=== PATIENT | female | born 1950 ===

== ENCOUNTER → 2020-07-19 15:44 | Outpatient (CLI) | payer MEDICARE, SELFPAY ==
--- NOTE | ~2020-07-19 | MR_ITS ---
EXAMINATION: MR lumbar spine wo con DATE: 07/19/2020 16:17 INDICATION: Lumbar radiculopathy TECHNIQUE: Magnetic resonance imaging (MRI) of the lumbar spine was performed without intravenous con trast. Sequences included sagittal T2-weighted FSE, sagittal T2-weighted FS FSE, sagittal T1-weighted FSE, and axial T2-weighted FSE. COMPARISON: 08/08/2009 FINDINGS: Alignment is normal. Vertebral body heights are normal. Mild fibrovascular degenerative endplate gibson ges on the right side of the L2-L3 disc space. Marrow signal is otherwise normal. Interval increase i n now moderate to severe disc height loss at L2-L3. Additional progression of now moderate disc heigh t loss at T10-T11 through L1-L2 and mild to moderate disc height loss at L3-L4 L4-L5 and L5-S1. The c onus medullaris terminates at T12-L1. There is normal signal in the caudal spinal cord. Paravertebral soft tissues are unremarkable. The following disc levels are specifically discussed: T12-L1: Disc is bulging. There is bilateral facet joint osteoarthritis. There is no neural foraminal stenosis. There is mild central canal stenosis. L1-L2: Disc is bulging. There is mild bilateral facet joint osteoarthritis. There is no neural forami nal stenosis. There is mild central canal stenosis. L2-L3: Disc is bulging with annular fissure. There is mild bilateral facet joint osteoarthritis. Ther e is mild bilateral neural foraminal stenosis. There is mild central canal stenosis and mild narrowin g of the lateral recesses. L3-L4: Disc is bulging. There is mild bilateral facet joint osteoarthritis. There is mild bilateral n eural foraminal stenosis. There is mild central canal stenosis and mild narrowing of the lateral rece sses. L4-L5: Disc is bulging with superimposed annular fissure. There is mild bilateral facet joint osteoar thritis. There is mild bilateral neural foraminal stenosis. There is mild central canal stenosis and mild narrowing of the lateral recesses, right greater than left. L5-S1: Disc is bulging. There is moderate bilateral facet joint osteoarthritis. There is mild to mode rate bilateral neural foraminal stenosis. There is mild central canal stenosis. IMPRESSION: 1. Interval progression of now moderate lumbar spondylosis. Reviewed, dictated and finalized at location A.
== END ==
PROVIDERS: Visit Provider Anesthesiology
DX: M47.26 Other spondylosis with radiculopathy, lumbar region (principal)
CPT/HCPCS: 72148

== ENCOUNTER → 2020-08-21 13:36 | Outpatient (CLI) | payer MEDICARE, SELFPAY ==
--- NOTE | ~2020-08-21 | MR_ITS ---
EXAMINATION: MR cervical spine wo/w con DATE: 08/21/2020 14:34 INDICATION: Cervical radiculopathy. TECHNIQUE: Magnetic resonance imaging (MRI) of the cervical spine was performed without and with 13 m L MultiHance intravenous contrast. Sequences included sagittal and axial T2-weighted FSE, sagittal ST IR FSE, and sagittal and axial T1-weighted FSE. Postcontrast sequences included sagittal and axial T1 -weighted FS FSE. COMPARISON: Cervical spine MRI 04/18/2014 FINDINGS: Bone alignment is normal. Vertebral body heights are normal. There is mildly decreased disc height at C4-C5 and C5-C6. The spinal cord signal intensity is normal. The following disc levels are specifically discussed: C2-C3: The disc does not extend beyond the endplate margin. There is no uncovertebral joint osteoarth ritis. There is mild right facet joint osteoarthritis. There is no neural foraminal stenosis. There i s no central canal stenosis. C3-C4: The disc does not extend beyond the endplate margin. There is mild left uncovertebral joint os teoarthritis. There is mild left facet joint osteoarthritis. There is no neural foraminal stenosis. T here is no central canal stenosis. C4-C5: There is a left central extrusion. There is mild left uncovertebral joint osteoarthritis. Ther e is mild bilateral facet joint osteoarthritis. There is mild left neural foraminal stenosis. There i s mild central canal stenosis. C5-C6: The disc is bulging. There is severe bilateral uncovertebral joint osteoarthritis. There is mi ld bilateral facet joint osteoarthritis. There is moderate right and mild left neural foraminal steno sis. There is mild central canal stenosis with ventral indentation of the spinal cord. C6-C7: There is a central protrusion. There is no uncovertebral joint osteoarthritis. There is mild b ilateral facet joint osteoarthritis. There is mild left neural foraminal stenosis. There is mild cent ral canal stenosis. C7-T1: The disc does not extend beyond the endplate margin. There is no uncovertebral joint osteoarth ritis. There is no facet joint osteoarthritis. There is no neural foraminal stenosis. There is no maryan tral canal stenosis. IMPRESSION: 1. Moderate cervical spondylosis, stable from 04/18/2014. Reviewed, dictated and finalized at location A.
[2020-08-21 13:58] LABS: Estimated Glomerular Filt Rate > 60
== END ==
PROVIDERS: Visit Provider Anesthesiology
DX: M47.22 Other spondylosis with radiculopathy, cervical region (principal)
CPT/HCPCS: 72156; A9577

== ENCOUNTER → 2020-10-09 10:09 | Outpatient (CLI) | payer MEDICARE, SELFPAY ==
--- NOTE | ~2020-10-09 | MR_ITS ---
EXAMINATION: MR thoracic spine wo con EXAM DATE: 10/09/2020 11:11 INDICATION: Radiculopathy, thoracic region upper/mid back burning x yrs, no trauma, no ca, pt fall of f. TECHNIQUE: Multi-sequential, multiplanar MR images of the thoracic spine were obtained without contra st. Sagittal T1, T2, T2 fat saturation, axial T2 weighted images reviewed. There is no prior study for comparison. FINDINGS: There is mild to moderate mid and lower thoracic disc disease, with mild disc bulges and pr otrusions, not causing any central canal stenosis. There is mild to moderate thoracic facet arthropat hy. Thoracic neural foramen also widely patent. Small to moderate size Schmorl's nodes at mid and low er thoracic levels. The spinal cord signal intensity and intrinsic morphology is normal. There are no suspicious marrow signal abnormalities. Paraspinal soft tissue is unremarkable. IMPRESSION: 1. Mild to moderate thoracic spondylosis. 2. No stenosis. Reviewed, dictated and finalized at location A.
== END ==
PROVIDERS: Visit Provider Anesthesiology
DX: M47.24 Other spondylosis with radiculopathy, thoracic region (principal)
CPT/HCPCS: 72146

== ENCOUNTER → 2021-05-28 11:25 | Outpatient (CLI) | payer MEDICARE, SELFPAY ==
--- NOTE | ~2021-05-28 | XR_ITS ---
EXAMINATION: XR shoulder RT min 2V DATE: 05/28/2021 11:48 INDICATION: Right shoulder pain. TECHNIQUE: 4 views of right shoulder were obtained. COMPARISON: None. FINDINGS: Bone alignment is normal. No fracture. There is mild osteoarthritis of glenohumeral joint a nd acromioclavicular joint. IMPRESSION: 1. Mild polyarticular osteoarthritis. Reviewed, dictated and finalized at location A. L RECORDS MANAGER
== END ==
PROVIDERS: PCP Anesthesiology; Visit Provider Anesthesiology
DX: M19.011 Primary osteoarthritis, right shoulder (principal)
CPT/HCPCS: 73030

== ENCOUNTER → 2022-02-18 11:14 | Outpatient (CLI) | payer MEDICARE, SELFPAY ==
--- NOTE | ~2022-02-18 | US_ITS ---
EXAMINATION: US soft tissue head and neck DATE: 02/18/2022 11:44 INDICATION: Swelling of lower jaw region . TECHNIQUE: Grayscale and Doppler ultrasound images of the left lower jaw were obtained. COMPARISON: None. FINDINGS: Area of clinical concern was sonographically interrogated, reveal ling no solid or cystic m ass. No lymphadenopathy. No vascular abnormality. IMPRESSION: No sonographic abnormality detected in the area of clinical concern. Reviewed, dictated and finalized at location K. ARCHITECTURE ANALYST
== END ==
PROVIDERS: PCP Internal Medicine; Visit Provider Internal Medicine
DX: R22.0 Localized swelling, mass and lump, head (principal)
CPT/HCPCS: 76536